=== PATIENT | female | born 1950 | race Hispanic/Latino ===

== ENCOUNTER → 2020-08-21 | Day surgery (SDC) | payer MEDICARE, OTHER ==
[~2020-08-21] VITALS: Ht 137.2 cm; Wt 49.0 kg
[~2020-08-21] MED LIST: ALENDRONATE SOD70 MG PO; ATORVASTATIN CA20 MG PO; GABAPENTIN300 MG PO; LIDOCAINE 1% W/EPINEPHRINE 20 ML VIAL ONE; OLMESARTAN-HCT1 EACH PO; PRANDIN1 MG PO
[2020-08-21 13:45] VITALS: BP 139/71
== END | disposition home or self-care (01) ==
LOC: CATH LAB 12:19
PROVIDERS: ATTEND Internal Medicine Interventional Cardiology
DX: I48.91 Unspecified atrial fibrillation (principal); Z01.812 Encounter for preprocedural laboratory examination; Z11.59 Encounter for screening for other viral diseases
CPT/HCPCS: 33285; C1764; U0002